=== PATIENT | female | born 1935 | race Caucasian/White ===

== ENCOUNTER 2017-04-10 13:59 | Inpatient (IN) | payer MEDICARE, BC ==
[~2017-04-10] VITALS: Ht 172.7 cm; Wt 92.5 kg
[~2017-04-10 13:59] MED LIST: ALDA50TA2 PO; ALLO100T PO; ASPI81TA85 PO; CINA30TA PO; FERR324T2 PO; FISH1000 PO; GLUC500C5 PO; HYDR-3910 PO; LANTINJ4 SC; LASI40TA PO; LEVO25TA5 PO; METO1TAB7 PO; NEUR300C PO; PARO10TA3 PO; PRIL20CA9 PO; PROC1INJ5 SC; SIMV40TA2 PO
[2017-04-10] MEDS ORDERED: BENA40TA7 PO ×2 (14:27→17:37)
[2017-04-10 15:34] LABS: BASO % 0.3 % (0.0-1.0); EOS # 0.2 K/mm3 (0.0-0.50); EOS % 2.2 % (0.0-3.0); LARGE UNSTAINED CELL # 0.1 K/mm3 (0.0-0.4); LARGE UNSTAINED CELL % 1.5 % (0.0-4.0); LYMPH % 27.3 % (24.0-44.0); MEAN CORPUSCULAR HEMOGLOBIN 33.4 pg (27.0-33.0); MEAN CORPUSCULAR HGB CONC 33.4 g/dl (32.0-36.5); MEAN CORPUSCULAR VOLUME 99.9 fl (80.0-96.0); MONO # 0.3 K/mm3 (0.0-0.8); MONO % 4.6 % (0.0-5.0); NEUTROPHILS # 4.5 K/mm3 (1.8-7.7); PLATELET COUNT, AUTOMATED 170 k/mm3 (150-450); RED CELL DISTRIBUTION WIDTH 14.4 % (11.5-14.5)
[2017-04-10 15:53] LABS: ANION GAP 8 MEQ/L (8-16); BLOOD UREA NITROGEN 82 MG/DL (7-18); CARBON DIOXIDE LEVEL 27 MEQ/L (21-32); CHLORIDE LEVEL 97 MEQ/L (98-107); CREATININE FOR GFR 2.88 MG/DL (0.55-1.02); GLOMERULAR FILTRATION RATE 16.8 (>39); GLUCOSE, FASTING 107 MG/DL (83-110); POTASSIUM SERUM 4.8 MEQ/L (3.5-5.1); SODIUM LEVEL 132 MEQ/L (136-145)
[2017-04-10] MEDS ORDERED: FURO40TA2 PO ×2 (17:37)
[2017-04-10] MEDS ORDERED: FERR325T16 PO (17:37)
[2017-04-10] MEDS ORDERED: PRESCAP6 PO (17:42)
[2017-04-10] MEDS ORDERED: REST0.05 OU (17:42)
[2017-04-10] MEDS ORDERED: GABA-283 PO (17:42)
--- NOTE | 2017-04-10 18:06 | REP ---
CT BRAIN WITHOUT CONTRAST: CT brain is performed without IV contrast. There is a small subarachnoid hemorrhage in the left occipital region. There is mild atrophy. There is no midline shift or mass effect. There are mild periventricular small vessel ischemic changes, which are probably old. No skull fracture is seen. There are vascular calcifications in the carotid siphons. IMPRESSION: Small left occipital subarachnoid hemorrhage. Dr. Leyva was informed of these findings by telephone in the emergency department at 5:11 pm 04/10/2017. Signed by Graeme Barcenas MD 04/13/2017 08:16 P
[2017-04-10] MEDS ORDERED: DEXTROSE 50% 50 ML SYRINGE IV PRN (18:15)
[2017-04-10] MEDS ORDERED: GLUCAGON FOR INJ 1 MG VIAL (J1610) SC PRN (18:15)
[2017-04-10] MEDS ORDERED: ONDANSETRON 4MG/2ML VIAL (J2405) IV PRN (18:15)
[2017-04-10] MEDS ORDERED: GLUCOSE 4 GM CHEW TABLET PO PRN (18:15)
--- NOTE | 2017-04-10 18:48 | REP ---
AP pelvis and AP and frog-leg views of the left hip: History: Trauma. Findings: AP view of the pelvis and AP and frog-leg views of the left hip show no evidence of pelvic, sacral or hip fracture. Femoral head is smooth and rounded and hip joint space is preserved. There are soft tissue ossific densities in the left gluteal soft tissues and in the central pelvis. There are degenerative disc changes in the lumbar spine. Impression: No fracture or other acute abnormality. Signed by Tad Kim MD 04/10/2017 06:40 P
--- NOTE | 2017-04-10 19:01 | HPEPDOC ---
General Date of Admission 04/10/17 Primary Care Physician: Britni Cantor Other Providers Knifer Up: Dr. Rosado Attending Physician: JUNIOR WILKERSON MD Chief Complaint The patient is a 81-year-old female admitted with a reason for visit of Syncope. History of Present Illness 81-year-old female with a past medical history of hypertension, diabetes mellitus, hypothyroidism, CKD stage IV and follows with Dr. Rosado, coronary artery disease, venous insufficiency, GERD, dyslipidemia, and gout presented to the ER after she has been having recurrent falls over the last few months. Of note, the patient was recently admitted at [facility] 2 days ago for an overnight observation admission. According to the patient and her family, the patient has sustained multiple falls over the last few months, and her most recent fall prior to her presentation to [place] resulted in her hitting her head. At that time, a CT scan revealed a small left occipital subarachnoid hemorrhage. This was apparently discussed with Dr. Thomas, and the patient was discharged home with a scheduled follow-up with Dr. Thomas today. However, at the office today the patient states that she had an episode where she felt weak in her legs, and nearly fell but was caught by family members. The patient is a rather poor historian, however her family states that she has had multiple falls over the last few months, and a lot of these falls are attributed to the patient not using her cane at home, which she has been advised to do. The patient lives at home by herself, but her family does live across the street. At baseline, she is functionally independent with her daily activities. At this time, the patient denies any complaints of headaches, lightheadedness, dizziness , vertiginous symptoms, facial numbness, slurring of speech, visual blurring, other neurological deficits, chest pain, palpitations, shortness of breath, abdominal pain, or any nausea/vomiting/diarrhea associated with the aforementioned events. In the ER, a CT scan of the head revealed a small left occipital subarachnoid hemorrhage. I did discuss these findings with Dr. Thomas, who has relayed that the patient's CAT scan is unchanged from 2 days ago, and that there is no neurosurgical intervention indicated at this time. At this time, the patient will be admitted under the service of Dr. Wilkerson for further evaluation and management. Home Medications Scheduled (Paroxetine) 10 Mg Tab, 10 MG PO QHS, (Reported) (Restasis) 0.05 % Emu, 1 DROP OU QHS, (Reported) (Preservision Areds 2) 1 Cap Cap, 1 CAP PO BID, (Reported) Allopurinol (Allopurinol) 100 Mg Tab, 100 MG PO BID, (Reported) Aspirin (Aspir-81) 81 Mg Tab, 81 MG PO Q2D, (Reported) PATIENT STATES [facility] TOLD HER NOT TO TAKE THIS UNTIL TO MD SAID IT WAS OKAY AGAIN DUE TO FALL Benazepril HCl (Benazepril HCl) 40 Mg Tab, 40 MG PO DAILY, (Reported) Cinacalcet Hydrochloride (Sensipar) 30 Mg Tab, 30 MG PO 3XW, (Reported) THU, THU, THU Epoetin Emery (Procrit) 10,000 Unit/Ml Inj, 10,000 UNIT SC QMONTH, (Reported) Ferrous Gluconate (Ferrous Gluconate) 324 Mg Tab, 324 MG PO DAILY, (Reported) Fish Oil (Fish Oil) 1,000 Mg Cap, 1 CAP PO BID, (Reported) Furosemide (Furosemide) 40 Mg Tab, 80 MG PO QAM, (Reported) Furosemide (Furosemide) 40 Mg Tab, 40 MG PO DAILY, (Reported) TAKES IN THE AFTERNOON Gabapentin (Gabapentin) 400 Mg Cap, 400 MG PO QHS, (Reported) Glucosamine Sulfate (Glucosamine) 500 Mg Cap, 500 MG PO TID, (Reported) Hydralazine HCl (Hydralazine HCl) 25 Mg Tab, 25 MG PO BID, (Reported) Insulin Glargine (Lantus Solostar) 100 Unit/Ml Inj, 18 UNITS SC QHS, (Reported) Levothyroxine Sodium (Synthroid) 25 Mcg Tab, 25 MCG PO DAILY, (Reported) Metoprolol Succinate (Metoprolol Succinate ER) 50 Mg Tab, 50 MG PO QHS, ( Reported) Omeprazole (Prilosec) 20 Mg Cap, 20 MG PO DAILY, (Reported) Simvastatin - High Dose (Simvastatin) 40 Mg Tab, 40 MG PO QHS, (Reported) Spironolactone (Aldactone) 50 Mg Tab, 50 MG PO DAILY, (Reported) Allergies Coded Allergies: Contrast Media (Verified Allergy, Unknown, 02/09/04) Metformin (Unverified Allergy, Unknown, KIDNEY PROBLEMS, 01/26/13) Rofecoxib (Unverified Allergy, Unknown, KIDNEY PROBLEMS, 01/26/13) Past Medical History Medical History As noted in HPI. Family History Significant Family History: No pertinent family hx Social History * Smoker: former Smoker Alcohol: occationally Drugs: denies Review of Symptoms Other systems 10 point review of systems negative unless otherwise specified in HPI. Physical Examination General Exam: Positive: Alert, Cooperative, No Acute Distress ENT Exam: Positive: Mucous membr. moist/pink, Other ENT (patient noted to have bruising on the posterior aspect of the neck and occipital area. No tenderness to palpation) Neck Exam: Negative: JVD Chest Exam: Positive: Clear to auscultation, Normal air movement, Diminished Heart Exam: Positive: Rate Normal, Normal S1, Normal S2 Telemetry: Positive: Sinus Abdomen Exam: Positive: Soft, Negative: Tenderness Extremity Exam: Positive: Swelling (3+ pitting edema lower extremity is bilaterally), Other (patient noted to have contusions along the dorsal surface of her right arm) Neuro Exam: Positive: Strength at 5/5 X4 ext Psych Exam: Positive: Oriented x 3 Vital Signs Vital Signs Date Time Temp Pulse Resp B/P (MAP) Pulse Ox O2 Delivery O2 Flow Rate FiO2 04/10/17 17:29 68 92 04/10/17 17:01 143/65 (91) 107/71 (83) 134/48 (76) 04/10/17 14:00 97.5 17 Room Air Laboratory Data Labs 24H Laboratory Tests 2 04/10/17 15:22: White Blood Count 7.0, Red Blood Count 3.07L, Hemoglobin 10.2L, Hematocrit 30.7L , Mean Corpuscular Volume 99.9H, Mean Corpuscular Hemoglobin 33.4H, Mean Corpuscular Hemoglobin Concent 33.4, Red Cell Distribution Width 14.4, Platelet Count 170, Neutrophils (%) (Auto) 64.0, Lymphocytes (%) (Auto) 27.3, Monocytes ( %) (Auto) 4.6, Eosinophils (%) (Auto) 2.2, Basophils (%) (Auto) 0.3, Neutrophils # (Auto) 4.5, Lymphocytes # (Auto) 2.0, Monocytes # (Auto) 0.3, Eosinophils # (Auto) 0.2, Basophils # (Auto) 0.0, Large Unclassified Cells % 1.5 , Large Unclassified Cells # 0.1, Anion Gap 8, Glomerular Filtration Rate 16.8L , Blood Urea Nitrogen 82H, Creatinine 2.88H, Sodium Level 132L, Potassium Level 4.8, Chloride Level 97L, Carbon Dioxide Level 27, Calcium Level 9.0, Total Creatine Kinase 261H, Creatine Kinase MB 3.1, Creatine Kinase MB Relative Index 1.18, Troponin I < 0.02, Thyroid Stimulating Hormone (TSH) 3.940H CBC/BMP Laboratory Tests 04/10/17 15:22 Red Blood Count 3.07 L, Mean Corpuscular Volume 99.9 H, Mean Corpuscular Hemoglobin 33.4 H, Mean Corpuscular Hemoglobin Concent 33.4, Red Cell Distribution Width 14.4, Neutrophils (%) (Auto) 64.0, Lymphocytes (%) (Auto) 27.3, Monocytes (%) (Auto) 4.6, Eosinophils (%) (Auto) 2.2, Basophils (%) (Auto ) 0.3, Neutrophils # (Auto) 4.5, Lymphocytes # (Auto) 2.0, Monocytes # (Auto) 0.3, Eosinophils # (Auto) 0.2, Basophils # (Auto) 0.0, Calcium Level 9.0, Total Creatine Kinase 261 H Plan / VTE VTE Prophylaxis Ordered?: Yes Plan Plan Recurrent Falls, Near Syncopal Episodes We will admit to PCU EKG with no acute ST-T changes Initial troponin negative, will serially trend 2D ECHO ordered U/S Carotids ordered Orthostatic Vitals ordered Neurochecks Physical Therapy We will continue to monitor on Telemetry Small Left Occipital Subarachnoid Hemorrhage 2/2 Trauma Patient with no acute neurological deficits CT Scan of the Head notable for a small left occipital subarachnoid hemorrhage. I did discuss these findings with Dr. Thomas, who has relayed that the patient' s CAT scan is unchanged from 2 days ago from [place]. As per him, there is no neurosurgical intervention indicated at this time, and that the patient's recurrent falls are not attributable to the subarachnoid hemorrhage but rather a product of trauma 2/2 falls from possible underlying orthostatic hypotension, vascular insufficiency. CKD stage IV Unknown baseline Serum Cr Order to obtain records from PCP placed However, it does appear that the patient is likely at her baseline--she does already have an AV-Fistula in place for initiation of dialysis when indicated in the future No indications for dialysis at this time Follows with Dr. Rosado as an outpatient Hx of Hypertension, stable Will hold B/P Meds for now as the patient's blood pressure was on the softer side in the ED We will also be checking orthostatics--if these are negative and the patient's blood pressure has become elevated, we will restart meds Diabetes mellitus Cont Levemir qhs, ISS Hypothyroidism Cont Levothyroxine Hx of Coronary artery disease Cont Statin--ASA on hold (2/2 SAH), and Metoprolol on hold (2/2 borderline hypotension) Venous insufficiency The patient does have 2-3+ pitting edema in the lower extremities--however this is the patient's baseline according to her and family We will with hold diuretics at this time given her relatively low B/P Patient's respiratory status is comfortable, no crackles on exam-->2D ECHO ordered to assess whether there is an underlying component of CHF GERD Cont PPI Dyslipidemia Cont Statin Gout Cont allopurinol DVT Prophylaxis SCDs/TEDs (NO AC 2/2 SAH) The patient will be admitted under the service of Dr. Wilkerson, who will begin to follow the patient on 04/11/17 at 7 AM. JULIO CÉSAR CHASE MD Apr 10, 2017 19:01
--- NOTE | 2017-04-10 19:40 | ECGEPIP ---
Stationary ECG Study [facility] - ED Test Date: 2017-04-10 Pat Name: MARCOS RIVAS Department: Room: - Gender: F Corporate Services Manager: rn : 1935 Requested By: Oksana Hennessy Order Number: [id number] Reading MD: Helio Nicholas Measurements Intervals Bixby Rate: 62 P: -11 LA: 173 QRS: -22 QRSD: 96 T: 39 QT: 414 QTc: 421 Interpretive Statements SINUS RHYTHM BORDERLINE LEFT AXIS DEVIATION LOW QRS VOLTAGE IN PRECORDIAL LEADS NO PRIORS Electronically Signed On 04-10-2017 19:40:39 EDT by Helio Nicholas
[2017-04-10 20:04] LABS: INR 1.04
[2017-04-10 20:28] VITALS: BP 141/63
[2017-04-10] MEDS: HumaLOG INSULIN (NovoLOG) PER UNIT SC SCH (21:00)
--- NOTE | 2017-04-10 21:02 | REP ---
Duplex carotid sonography: History: Syncopal episodes. Findings: Vertebral artery flow could not be observed on either side. Right carotid: Exam quality was inhibited by patient body habitus. There is minimal soft plaquing in the distal CCA. Mild mixed plaquing is seen in the proximal ICA and bulb on two-dimensional scanning. Color flow and spectral Doppler interrogation are unremarkable on the right side. Velocity chart: CCA PSV 109 cm/s ICA PSV 101 cm/s ICA EDV 23 cm/s ECA PSV 102 cm/s Right ICA/CCA ratio normal 0.9. IMPRESSION: 16-49% category narrowing in the right ICA by Doppler velocity criteria. Left carotid: There is minimal soft plaquing in the distal CCA. Mild mixed plaquing is seen in the bulb on the left side on two-dimensional scanning. Color flow and spectral Doppler interrogation are unremarkable in the left internal carotid. Velocity chart: CCA PSV 87 cm/s ICA PSV 115 cm/s ICA EDV 10 cm/s ECA PSV 149 cm/s Left ICA/CCA ratio normal 1.3. Impression: 16-49% category narrowing in the left ICA by Doppler velocity criteria. Signed by Tad Kim MD 04/11/2017 07:43 A
[2017-04-10] MEDS: GABAPENTIN 400 MG CAP PO SCH (21:03)
[2017-04-10] MEDS: ALLOPURINOL 100 MG TAB PO SCH (21:03)
[2017-04-10] MEDS: PARoxetine 10MG TABLET PO SCH (21:03)
[2017-04-10] MEDS: SIMVASTATIN 40 MG TAB PO SCH (21:03)
[2017-04-10] MEDS: OMEGA-3 1050MG CAPSULE PO SCH (21:03)
[2017-04-10] MEDS: ACETAMINOPHEN TAB 650MG DOSE (2X325MG) PO PRN (21:03)
[2017-04-10] MEDS: LEVEMIR (INSULIN DETEMIR) 1 UNITS/0.01ML SC SCH (21:56)
[2017-04-10 23:59] VITALS: BP_SYST 110; BP_SYST 90; BP_SYST 96; BP_DIAS 50; BP_DIAS 53
[2017-04-11] VITALS (10 sets, daily range): BP systolic 80–128; BP diastolic 37–62
[2017-04-11] MEDS ORDERED: NS 1,000 ML IV ONE (04:00)
[2017-04-11 04:49] LABS: MEAN CORPUSCULAR HEMOGLOBIN 33.6 pg (27.0-33.0); MEAN CORPUSCULAR HGB CONC 33.5 g/dl (32.0-36.5); MEAN CORPUSCULAR VOLUME 100.5 fl (80.0-96.0); RED CELL DISTRIBUTION WIDTH 14.5 % (11.5-14.5); WHITE BLOOD COUNT 5.3 K/mm3 (4.0-10.0)
[2017-04-11 05:09] LABS: CALCIUM LEVEL 8.4 MG/DL (8.8-10.2); CREATININE FOR GFR 2.98 MG/DL (0.55-1.02); GLOMERULAR FILTRATION RATE 16.1 (>39); MAGNESIUM LEVEL 2.4 MG/DL (1.8-2.4); POTASSIUM SERUM 4.6 MEQ/L (3.5-5.1)
[2017-04-11] MEDS: LEVOTHYROXINE 25MCG TABLET (0.025MG) PO SCH (05:30)
[2017-04-11] MEDS: NS 1,000 ML IV SCH ×2 (05:31→17:20)
[2017-04-11] MEDS: ALLOPURINOL 100 MG TAB PO SCH ×2 (09:23→20:19)
[2017-04-11] MEDS: HumaLOG INSULIN (NovoLOG) PER UNIT SC SCH ×4 (09:24→20:19)
[2017-04-11] MEDS: FERROUS GLUCONATE 324 MG TAB PO SCH (09:24)
[2017-04-11] MEDS: OMEPRAZOLE 20 MG CAP PO SCH (09:24)
[2017-04-11] MEDS: OMEGA-3 1050MG CAPSULE PO SCH ×2 (09:24→20:20)
--- NOTE | 2017-04-11 10:19 | IPNPDOC ---
Subjective Date Seen The patient was seen on 04/11/17. Subjective Chief Complaint/HPI The patient is a 81-year-old female admitted with a reason for visit of Recurrent Falls. Events since last encounter patient complains of left shoulder pain , low back pain , she showed me her bruises from her fall earlier in the week on her neck , both shoulders, across low back , left breast and right and left arm. denied any fever or chills, denied any chest pain or sob , says she has been having loose bowel movements about 2 to 3 times a day for the past week. denied any abdominal pain , nausea or vomiting. Objective Physical Examination General Exam: Positive: Alert, Cooperative, No Acute Distress Eye Exam: Positive: PERRLA, Conjunctiva & lids normal, EOMI, Negative: Sclera icteric ENT Exam: Positive: Mucous membr. moist/pink, Other ENT (patient noted to have bruising on the posterior aspect of the neck and occipital area. No tenderness to palpation) Neck Exam: Negative: JVD Chest Exam: Positive: Clear to auscultation, Normal air movement, Diminished, Other (bruising on left breat.) Heart Exam: Positive: Rate Normal, Normal S1, Normal S2 Telemetry: Positive: No significant arrhythmia, Sinus Abdomen Exam: Positive: Normal bowel sounds, Soft, Negative: Tenderness Extremity Exam: Positive: Edema, Swelling (3+ pitting edema lower extremity is bilaterally), Other (patient noted to have contusions along the dorsal surface of her right arm) Skin Exam: Positive: Other skin issue (bruises on neck ,both shoulders, across lower back , left breast, both arms) Neuro Exam: Positive: Strength at 5/5 X4 ext Psych Exam: Positive: Oriented x 3 Assessment /Plan Problems (1) Hypotension Status: Acute Problem Text: No signs of infection , no signs of any acute cardiac events. Has been having diarrhea for a week and on multiple antihypertensive medications. could be related to mild dehydration and medications. severely orthostatic positive. will continue with IVF. will get echo to rule out pericardial effusion. (2) Recurrent falls Status: Acute Problem Text: Had 3 falls inthe last week , no LOC will Monitor on tele for any arrhythmia. Hypotensive possibly this is causing her falls. (3) Near syncope Status: Acute Problem Text: due to orthostatic hypotension (4) Subarachnoid hemorrhage Status: Acute Problem Text: seen by Dr Zhou no neurosurgical intervention needed. (5) CKD (chronic kidney disease), stage IV Status: Chronic (6) Diabetes Status: Chronic (7) Hypertension Status: Chronic Problem Text: now hypotensive so will hold all antihypertensive medications. (8) Hyperlipidemia Status: Chronic (9) Venous insufficiency Status: Chronic (10) Gout Status: Chronic (11) JEREMIE on CPAP Status: Chronic (12) CAD (coronary artery disease) Status: Chronic (13) GERD (gastroesophageal reflux disease) Status: Chronic (14) Hypothyroidism Status: Chronic Plan/VTE VTE Prophylaxis Ordered?: Yes VS, I&O, 24H, Fishbone Vital Signs/I&O Vital Signs Date Time Temp Pulse Resp B/P (MAP) Pulse Ox O2 Delivery O2 Flow Rate FiO2 04/11/17 09:28 Room Air 04/11/17 07:10 67 86/43 (57) 67 90/49 (63) 04/11/17 07:10 98.1 20 100 I&O- Last 24 Hours up to 6 AM 04/11/17 06:00 Intake Total 1695 ml Output Total 226 ml Balance 1469 ml Laboratory Data 24H LABS Laboratory Tests 2 04/10/17 15:22: White Blood Count 7.0, Red Blood Count 3.07L, Hemoglobin 10.2L, Hematocrit 30.7L , Mean Corpuscular Volume 99.9H, Mean Corpuscular Hemoglobin 33.4H, Mean Corpuscular Hemoglobin Concent 33.4, Red Cell Distribution Width 14.4, Platelet Count 170, Neutrophils (%) (Auto) 64.0, Lymphocytes (%) (Auto) 27.3, Monocytes ( %) (Auto) 4.6, Eosinophils (%) (Auto) 2.2, Basophils (%) (Auto) 0.3, Neutrophils # (Auto) 4.5, Lymphocytes # (Auto) 2.0, Monocytes # (Auto) 0.3, Eosinophils # (Auto) 0.2, Basophils # (Auto) 0.0, Large Unclassified Cells % 1.5 , Large Unclassified Cells # 0.1, Anion Gap 8, Glomerular Filtration Rate 16.8L , Blood Urea Nitrogen 82H, Creatinine 2.88H, Sodium Level 132L, Potassium Level 4.8, Chloride Level 97L, Carbon Dioxide Level 27, Calcium Level 9.0, Total Creatine Kinase 261H, Creatine Kinase MB 3.1, Creatine Kinase MB Relative Index 1.18, Troponin I < 0.02, Thyroid Stimulating Hormone (TSH) 3.940H 04/10/17 19:37: Total Creatine Kinase 265H, Creatine Kinase MB 3.1, Creatine Kinase MB Relative Index 1.16, Troponin I < 0.02, Prothrombin Time 13.7, Prothromb Time International Ratio 1.04, Activated Partial Thromboplast Time 29.7 04/10/17 20:35: Bedside Glucose (Misc Panel) 95 04/10/17 21:50: Bedside Glucose (Misc Panel) 155H 04/11/17 03:58: Anion Gap 7L, Glomerular Filtration Rate 16.1L, Blood Urea Nitrogen 81H, Creatinine 2.98H, Sodium Level 133L, Potassium Level 4.6, Chloride Level 99, Carbon Dioxide Level 27, Calcium Level 8.4L, Magnesium Level 2.4 04/11/17 04:12: Lactic Acid Level 0.9 04/11/17 09:44: CBC/BMP Laboratory Tests 04/10/17 15:22 Red Blood Count 3.07 L, Mean Corpuscular Volume 99.9 H, Mean Corpuscular Hemoglobin 33.4 H, Mean Corpuscular Hemoglobin Concent 33.4, Red Cell Distribution Width 14.4, Neutrophils (%) (Auto) 64.0, Lymphocytes (%) (Auto) 27.3, Monocytes (%) (Auto) 4.6, Eosinophils (%) (Auto) 2.2, Basophils (%) (Auto ) 0.3, Neutrophils # (Auto) 4.5, Lymphocytes # (Auto) 2.0, Monocytes # (Auto) 0.3, Eosinophils # (Auto) 0.2, Basophils # (Auto) 0.0, Calcium Level 9.0, Total Creatine Kinase 261 H 04/11/17 03:58 Red Blood Count 2.73 L, Mean Corpuscular Volume 100.5 H, Mean Corpuscular Hemoglobin 33.6 H, Mean Corpuscular Hemoglobin Concent 33.5, Red Cell Distribution Width 14.5, Calcium Level 8.4 L JUNIOR GIL MD Apr 11, 2017 10:19
[2017-04-11] MEDS: ACETAMINOPHEN TAB 650MG DOSE (2X325MG) PO PRN (18:18)
[2017-04-11] MEDS: LEVEMIR (INSULIN DETEMIR) 1 UNITS/0.01ML SC SCH (20:19)
[2017-04-11] MEDS: PARoxetine 10MG TABLET PO SCH (20:19)
[2017-04-11] MEDS: GABAPENTIN 400 MG CAP PO SCH (20:20)
[2017-04-11] MEDS: SIMVASTATIN 40 MG TAB PO SCH (20:20)
[2017-04-12] VITALS (8 sets, daily range): BP systolic 98–150; BP diastolic 48–62
[2017-04-12 05:14] LABS: MEAN CORPUSCULAR HEMOGLOBIN 33.9 pg (27.0-33.0); MEAN CORPUSCULAR HGB CONC 32.7 g/dl (32.0-36.5); MEAN CORPUSCULAR VOLUME 103.6 fl (80.0-96.0); RED CELL DISTRIBUTION WIDTH 14.2 % (11.5-14.5); WHITE BLOOD COUNT 4.6 K/mm3 (4.0-10.0)
[2017-04-12] MEDS: LEVOTHYROXINE 25MCG TABLET (0.025MG) PO SCH (05:23)
[2017-04-12 05:26] LABS: CREATININE FOR GFR 2.31 MG/DL (0.55-1.02); GLOMERULAR FILTRATION RATE 21.7 (>39); POTASSIUM SERUM 4.6 MEQ/L (3.5-5.1)
[2017-04-12] MEDS: NS 1,000 ML IV SCH (06:55)
--- NOTE | 2017-04-12 07:16 | ECHO ---
DATE OF PROCEDURE: 04/11/2017 AGE: 81 GENDER: Female REFERRING PHYSICIAN: Dr. Flannery. HEIGHT: 67 inches. WEIGHT: 196 pounds. BODY SURFACE AREA: 2.0 sq m. INPATIENT: PCU Room 3211. INDICATION: Syncope. MEASUREMENTS: 2D MEASUREMENTS: RV - 3.4 cm LV- 4.9 cm Septum - 0.9 cm Posterior wall - 0.9 cm Aortic root - 2.7 cm LA - 4.0 cm LVEF - 65% DOPPLER MEASUREMENTS: AV - 2.3 m/s LVOT - 1.5 m/s Mean AV gradient - 12 mmHg MV-E: 180 A: 190 EA ratio 0.9 Early mitral deacceleration time 380 ms Pressure half time - 129 Mean MV diastolic gradient - 4 mmHg PV - 1.2 m/s Pulmonary artery acceleration time - 87 ms PASP - 40 mmHg IVC - 1.8 2-D, M-mode, pulsed, continuous wave and color flow Doppler studies were performed. CONCLUSIONS: Normal sinus rhythm with first-degree AV block but no other arrhythmia was documented. Normal left ventricular size and wall thickness with hyperkinetic wall motion. Mildly dilated left atrium. Normal right heart chamber sizes and motion with Doppler evidence of at least mild to moderate pulmonary hypertension. Normal IVC size and collapse against an elevated central venous pressure. Moderate aortic valvular sclerosis without stenosis (elevated peak transvalvular systolic velocity related to hyperdynamic LV flow; dimensionless index was normal at 0.7). Moderately severe mitral annular calcification with marginal LV inflow tract obstruction. No insufficiency. No apparent intracardiac mass or pericardial effusion. MTDD
[2017-04-12] MEDS: FERROUS GLUCONATE 324 MG TAB PO SCH (08:42)
[2017-04-12] MEDS: OMEPRAZOLE 20 MG CAP PO SCH (08:42)
[2017-04-12] MEDS: ALLOPURINOL 100 MG TAB PO SCH ×2 (08:42→22:23)
[2017-04-12] MEDS: OMEGA-3 1050MG CAPSULE PO SCH ×2 (08:42→22:22)
[2017-04-12] MEDS: HumaLOG INSULIN (NovoLOG) PER UNIT SC SCH ×4 (08:43→21:00)
[2017-04-12] MEDS: MUPIROCIN 2% OINT 22 GM TUBE TOP SCH (09:00)
--- NOTE | 2017-04-12 10:23 | IPNPDOC ---
Subjective Date Seen The patient was seen on 04/12/17. Subjective Chief Complaint/HPI The patient is a 81-year-old female admitted with a reason for visit of Recurrent Falls. Events since last encounter complaining of leg swelling this morning otherwise no other complaints, generalized pain after the falls are getting better no dizziness of light headedness. no diarrhea, no chest pain , or SOb , no nausea or vomiting , no fever or chills, Objective Physical Examination General Exam: Positive: Alert, Cooperative, No Acute Distress Eye Exam: Positive: PERRLA, Conjunctiva & lids normal, EOMI, Negative: Sclera icteric ENT Exam: Positive: Mucous membr. moist/pink, Other ENT (patient noted to have bruising on the posterior aspect of the neck and occipital area. No tenderness to palpation) Neck Exam: Negative: JVD Chest Exam: Positive: Clear to auscultation, Normal air movement, Diminished, Other (bruising on left breat.) Heart Exam: Positive: Rate Normal, Normal S1, Normal S2 Telemetry: Positive: No significant arrhythmia, Sinus Abdomen Exam: Positive: Normal bowel sounds, Soft, Negative: Tenderness Extremity Exam: Positive: Edema, Swelling (3+ pitting edema lower extremity is bilaterally), Other (patient noted to have contusions along the dorsal surface of her right arm) Skin Exam: Positive: Other skin issue (bruises on neck ,both shoulders, across lower back , left breast, both arms) Neuro Exam: Positive: Strength at 5/5 X4 ext Psych Exam: Positive: Oriented x 3 Assessment /Plan Problems (1) Hypotension Status: Acute Response to Treatment: Improving Problem Text: No signs of infection , no signs of any acute cardiac events. Has been having diarrhea for a week and on multiple antihypertensive medications. could be related to mild dehydration and medications. orthostasis improving. will continue with IVF. will get echo to rule out pericardial effusion. (2) Recurrent falls Status: Acute Problem Text: Had 3 falls inthe last week , no LOC will Monitor on tele for any arrhythmia. Hypotensive possibly this is causing her falls. (3) Near syncope Status: Acute Problem Text: due to hypotension no abnormality in telemetry (4) Subarachnoid hemorrhage Status: Acute Problem Text: seen by Dr Zhou no neurosurgical intervention needed. (5) CKD (chronic kidney disease), stage IV Status: Chronic (6) Diabetes Status: Chronic (7) Hypertension Status: Chronic Problem Text: now hypotensive so will hold all antihypertensive medications. (8) Hyperlipidemia Status: Chronic (9) Venous insufficiency Status: Chronic (10) Gout Status: Chronic (11) JEREMIE on CPAP Status: Chronic (12) CAD (coronary artery disease) Status: Chronic (13) GERD (gastroesophageal reflux disease) Status: Chronic (14) Hypothyroidism Status: Chronic Plan/VTE VTE Prophylaxis Ordered?: Yes VS, I&O, 24H, Fishbone Vital Signs/I&O Vital Signs Date Time Temp Pulse Resp B/P (MAP) Pulse Ox O2 Delivery O2 Flow Rate FiO2 04/12/17 07:30 100/50 (67) 120/50 (73) 110/58 (75) 04/12/17 03:47 97.2 51 18 94 Room Air I&O- Last 24 Hours up to 6 AM 04/12/17 06:00 Intake Total 3300 ml Output Total 1625 ml Balance 1675 ml Laboratory Data 24H LABS Laboratory Tests 2 04/11/17 13:10: Bedside Glucose (Misc Panel) 92 04/11/17 16:19: Bedside Glucose (Misc Panel) 116H 04/11/17 20:08: Bedside Glucose (Misc Panel) 170H 04/12/17 04:44: Anion Gap 5L, Glomerular Filtration Rate 21.7L, Blood Urea Nitrogen 66H, Creatinine 2.31H, Sodium Level 142#, Potassium Level 4.6, Chloride Level 112H, Carbon Dioxide Level 25, Calcium Level 8.0L CBC/BMP Laboratory Tests 04/12/17 04:44 Red Blood Count 2.58 L, Mean Corpuscular Volume 103.6 H, Mean Corpuscular Hemoglobin 33.9 H, Mean Corpuscular Hemoglobin Concent 32.7, Red Cell Distribution Width 14.2, Calcium Level 8.0 L JUNIOR GIL MD Apr 12, 2017 10:23
[2017-04-12] MEDS: LEVEMIR (INSULIN DETEMIR) 1 UNITS/0.01ML SC SCH (21:00)
[2017-04-12] MEDS: ACETAMINOPHEN TAB 650MG DOSE (2X325MG) PO PRN (22:22)
[2017-04-12] MEDS: SIMVASTATIN 40 MG TAB PO SCH (22:22)
[2017-04-12] MEDS: GABAPENTIN 400 MG CAP PO SCH (22:23)
[2017-04-12] MEDS: PARoxetine 10MG TABLET PO SCH (22:23)
[2017-04-13] VITALS: BP_SYST 128; BP_SYST 136; BP_SYST 146; BP_DIAS 62; BP_DIAS 68; BP_DIAS 72
[2017-04-13] MEDS: LEVOTHYROXINE 25MCG TABLET (0.025MG) PO SCH (05:38)
[2017-04-13 06:00] VITALS: BP_SYST 120; BP_SYST 132; BP_SYST 136; BP_DIAS 60; BP_DIAS 62
[2017-04-13 06:39] LABS: MEAN CORPUSCULAR HEMOGLOBIN 33.8 pg (27.0-33.0); MEAN CORPUSCULAR HGB CONC 32.8 g/dl (32.0-36.5); RED CELL DISTRIBUTION WIDTH 14.7 % (11.5-14.5); WHITE BLOOD COUNT 4.6 K/mm3 (4.0-10.0)
[2017-04-13 06:50] LABS: CALCIUM LEVEL 8.1 MG/DL (8.8-10.2); CREATININE FOR GFR 1.78 MG/DL (0.55-1.02); GLOMERULAR FILTRATION RATE 29.3 (>39); POTASSIUM SERUM 4.7 MEQ/L (3.5-5.1)
[2017-04-13] MEDS: HumaLOG INSULIN (NovoLOG) PER UNIT SC SCH ×2 (07:30→12:00)
[2017-04-13] MEDS ORDERED: FUROSEMIDE 40 MG TAB PO SCH (09:00)
[2017-04-13] MEDS: MUPIROCIN 2% OINT 22 GM TUBE TOP SCH (09:46)
[2017-04-13] MEDS: OMEGA-3 1050MG CAPSULE PO SCH (09:47)
[2017-04-13] MEDS: ALLOPURINOL 100 MG TAB PO SCH (09:47)
[2017-04-13] MEDS: FERROUS GLUCONATE 324 MG TAB PO SCH (09:47)
[2017-04-13] MEDS: OMEPRAZOLE 20 MG CAP PO SCH (09:47)
--- NOTE | 2017-04-20 12:13 | DSES ---
DATE OF ADMISSION: 04/10/2017 DATE OF DISCHARGE: 04/13/2017 PRIMARY CARE PROVIDER: Britni Cantor. DISCHARGE DIAGNOSES: Hypotension due to antihypertensive medications. Recurrent falls due to orthostatic hypotension. Presyncope due to hypotension. Subarachnoid hemorrhage, stable. Chronic kidney disease (CKD), stage IV. Diabetes. Hypertension. Hyperlipidemia. Venous insufficiency. Gout. Obstructive sleep apnea (JEREMIE) on CPAP. Coronary artery disease. Gastroesophageal reflux disease (GERD). Hypothyroidism. DISCHARGE MEDICATIONS: - allopurinol 100 mg by mouth twice daily - Sensipar 30 mg by mouth three times per week - Procrit 10,000 units subcutaneously once a month - ferrous gluconate 324 mg by mouth daily - fish oil one capsule twice daily - furosemide 80 mg in the morning - gabapentin 400 mg by mouth at bedtime - glucosamine 500 mg by mouth three times daily - Lantus insulin 18 units at bedtime - Synthroid 25 mcg by mouth daily - omeprazole 20 mg by mouth daily - paroxetine 10 mg at bedtime - PreserVision Areds one capsule by mouth twice daily - Restasis eye drops one drop both eyes at bedtime - Simvastatin 40 mg at bedtime - spironolactone 50 mg by mouth daily HOSPITAL COURSE: This is a 81-year-old female who was sent from the office of neurosurgery for an episode of syncope and fall. Of note, patient was in the [facility] on 04/08/2017 after fall in her house where she rolled down a few stairs and fell on the pavement hitting her head sustaining a small left occipital subarachnoid hemorrhage. She went for followup of this hemorrhage with Dr. Thomas in his office and again had syncopal episode and collapse and was sent to the emergency room. In the ED, patient was found to be hypotensive accompanied by lightheadedness, dizziness and extreme weakness. Patient was admitted to the hospital for hypotension, syncope, recurrent falls. Patient had workup done for infectious etiology causing hypotension, cardiac etiology causing hypotension. Patient was monitored in telemetry but did not show any arrhythmia. Patient had echocardiogram done which did not show any pericardial effusion. Echo showed an ejection fraction of 65%. EKG showed sinus rhythm with first degree AV block. There was no aortic stenosis. There is no mitral regurgitation. No other valvular heart disease. Patient's antihypertensive medications and diuretics were held during hospitalization with gradual improvement in blood pressure. However, patient also started developing pedal edema so with normalization of blood pressure, her diuretics were started on a lower dose but her other antihypertensive medications including faustina inhibitors, beta renaldo and hydralazine were continued to be held. Patient's aspirin was also held. Patient had a repeat CT scan here in our hospital which showed stable left occipital subarachnoid hemorrhage which was discussed with Dr. Thomas and as per him did not need any intervention. Then had a carotid ultrasound done which did not show any significant narrowing on either side, so all the patient's symptoms were felt to be related to hypotension related to medications and the background of dehydration due to diarrhea. Patient did have about a week of diarrhea about three times per day. Here in the hospital, she did not have any further episodes of diarrhea. On the day of discharge, patient's vitals were stable, did not have any complaints and was functionally at baseline. PHYSICAL EXAMINATION: Vital signs: Temperature 98.2, pulse 77, blood pressure 120/60. There were no orthostatic changes. Pulse oximetry 97% on room air. General: Patient awake, alert, oriented times three sitting up in bed in no acute distress. HEENT: Normocephalic, atraumatic. Moist mucous membranes. Anicteric eyes. Chest: Clear to auscultation. Cardiovascular: S1, S2, regular. No rub, murmur or gallop. Abdomen: Soft, obese, nontender. Bowel sounds present. Extremities: 3+ edema. LABORATORY DATA: WBC 4.6, hemoglobin 8.3, platelets 140. Sodium 139, potassium 4.7, chloride 110, bicarbonate 26, BUN 51, creatinine 1.78. Lactic acid 0.9. Calcium 8.1. Blood glucose 139. Cardiac enzymes were negative. TSH 3.9. Coagulation studies were normal. DISPOSITION: Patient is discharged home in stable condition. DISCHARGE INSTRUCTIONS: Patient to followup with primary care provider in 3 days for assessment of her blood pressure and adjustment of blood pressure medications. Diet as tolerated. Activity as tolerated.
== END 2017-04-13 14:26 | disposition home health service (06) | DRG 315 ==
LOC: M ED 15:43 → M ED INP 18:14 → M PCU 20:11 → M MSPAV 04-12 18:50 → M PCU 04-12 19:19 → M MSPAV 04-12 20:45
PROVIDERS: ADMIT Internal Medicine; ATTEND Internal Medicine Nephrology
DX: I95.9 Hypotension, unspecified (principal); N18.4 Chronic kidney disease, stage 4 (severe); R29.6 Repeated falls; E11.9 Type 2 diabetes mellitus without complications; I12.9 Hypertensive chronic kidney disease with stage 1 through stage 4 chronic kidney disease, or unspecified chronic kidney disease; I87.2 Venous insufficiency (chronic) (peripheral); E78.5 Hyperlipidemia, unspecified; M10.9 Gout, unspecified; G47.33 Obstructive sleep apnea (adult) (pediatric); I25.10 Atherosclerotic heart disease of native coronary artery without angina pectoris; K21.9 Gastro-esophageal reflux disease without esophagitis; E03.9 Hypothyroidism, unspecified; Z79.4 Long term (current) use of insulin; Z79.899 Other long term (current) drug therapy; Z79.82 Long term (current) use of aspirin; Z88.8 Allergy status to other drugs, medicaments and biological substances; Z91.041 Radiographic dye allergy status; Z87.891 Personal history of nicotine dependence; Z99.89 Dependence on other enabling machines and devices

== ENCOUNTER → 2017-04-20 | Outpatient (CLI) | payer MEDICARE, BC ==
[~2017-04-20] MED LIST changes: +BENA40TA2 PO; +FERR325T16 PO; +FURO40TA2 PO; +GABA-283 PO; -HYDR-3910 PO; +HYDR-4266 PO; +METO-207 PO; -METO1TAB7 PO; -PARO10TA3 PO; +PARO10TA84 PO; +PRESCAP6 PO; +REST0.05 OU
--- NOTE | 2017-04-20 14:34 | REP ---
REASON: Followup intracranial subarachnoid hemorrhage in the left occipital region. COMPARISON: 04/10/2017. The small left sided subarachnoid hemorrhage seen on the 04/10/2017 examination has completely resolved. The examination is otherwise unchanged from the prior exam. There is no evidence of an acute intracranial hemorrhage or non-hemorrhagic event. The imaged paranasal sinuses and mastoid air cells are again seen to be clear. IMPRESSION: Resolved subarachnoid hemorrhage as described above. Signed by Javier Ashley DO 04/20/2017 03:13 P
--- NOTE | 2017-04-20 14:45 | REP ---
Cervical spine seven views: There are no comparisons. Vertebral body heights and alignment are normal C1-C7. Kilos obscured by the shoulders. There is advanced degenerative disc disease at C 05/06. There is no listhesis on flexion or extension. The facets are normally aligned. The prevertebral soft tissues are unremarkable except for thyroid, cricoid cartilage calcification. The odontoid view is unremarkable. No bony foraminal encroachment is identified, however, the right to 03/04 in a suboptimally demonstrated. Impression: Degenerative disc disease at C 05/06. Facet osteoarthritis. T1 is obscured by the shoulders. On the lateral views. Recommend the patient return for a lateral views demonstrating T1. The right C2-3 foramen is suboptimally demonstrated. This should also be repeated on the follow-up views. Signed by Graeme Beard MD 04/20/2017 02:36 P
--- NOTE | 2017-04-20 14:47 | REP ---
Clinical: Spondylosis. Technique: AP, lateral, bilateral oblique, flexion/extension and coned-down views of the lumbosacral spine. Findings: Chronic levoconvex scoliosis and advanced multilevel degenerative disc osteophyte complexes are appreciated. Findings include osteophytosis, endplate sclerosis/irregularity and disc space narrowing along with hypertrophic facet changes. No obvious acute fracture / compression injury or subluxation. Impression: Advanced multilevel degenerative disc osteophyte complexes and chronic levoconvex scoliosis. Signed by Varun Wihpple MD 04/20/2017 02:39 P
== END ==
LOC: M RAD 13:38
PROVIDERS: ATTEND Neurological Surgery
DX: M47.896 Other spondylosis, lumbar region (principal); I60.9 Nontraumatic subarachnoid hemorrhage, unspecified

== ENCOUNTER → 2017-05-05 | Outpatient (REF) | payer MEDICARE, BC ==
[~2017-05-05] MED LIST changes: -BENA40TA2 PO; +BENA40TA7 PO; +HYDR-3910 PO; -HYDR-4266 PO; -METO-207 PO; +METO1TAB7 PO; +PARO10TA3 PO; -PARO10TA84 PO
[2017-05-05 13:37] LABS: BASO % 0.4 % (0.0-1.0); EOS # 0.3 K/mm3 (0.0-0.50); EOS % 3.8 % (0.0-3.0); LARGE UNSTAINED CELL # 0.1 K/mm3 (0.0-0.4); LARGE UNSTAINED CELL % 1.2 % (0.0-4.0); LYMPH # 1.8 K/mm3 (1.5-4.5); LYMPH % 24.1 % (24.0-44.0); MEAN CORPUSCULAR HEMOGLOBIN 32.7 pg (27.0-33.0); MEAN CORPUSCULAR VOLUME 102.1 fl (80.0-96.0); MONO # 0.3 K/mm3 (0.0-0.8); NEUTROPHILS # 4.7 K/mm3 (1.8-7.7); NEUTROPHILS % 66.5 % (36.0-66.0); PLATELET COUNT, AUTOMATED 234 k/mm3 (150-450); RED CELL DISTRIBUTION WIDTH 14.7 % (11.5-14.5)
[2017-05-05 13:55] LABS: ALBUMIN 3.5 GM/DL (3.2-5.2); ALBUMIN/GLOBULIN RATIO 1.03 (1.00-1.93); ALKALINE PHOSPHATASE 107 U/L (45-117); ALT/SGPT 15 U/L (12-78); ANION GAP 10 MEQ/L (8-16); AST/SGOT 17 U/L (15-37); BILIRUBIN,TOTAL 0.5 MG/DL (0.2-1.0); BLOOD UREA NITROGEN 40 MG/DL (7-18); CALCIUM LEVEL 8.8 MG/DL (8.8-10.2); CARBON DIOXIDE LEVEL 28 MEQ/L (21-32); CHLORIDE LEVEL 95 MEQ/L (98-107); CREATININE FOR GFR 2.07 MG/DL (0.55-1.02); GLOMERULAR FILTRATION RATE 24.6 (>39); GLUCOSE, FASTING 84 MG/DL (83-110); POTASSIUM SERUM 3.9 MEQ/L (3.5-5.1); SODIUM LEVEL 133 MEQ/L (136-145); TOTAL PROTEIN 6.9 GM/DL (6.4-8.2)
[2017-05-05 14:50] LABS: ERYTHROCYTE SEDIMENTATION RATE 84 mm/hr (0-30)
[2017-05-07 11:24] LABS: ALBUMIN 3.93 GM/DL (3.29-5.55); ALBUMIN % 56.9 % (55.8-66.1); GAMMA GLOBULIN % 11.9 % (11.1-18.8)
[2017-05-09 18:14] LABS: SJOGREN'S ANTI SS-A <0.2 AI (0.0-0.9); SJOGREN'S ANTI SS-B <0.2 AI (0.0-0.9); VITAMIN E LEVEL 29.4 mg/L (6.5-21.5)
== END ==
LOC: M LABNEURO 12:28
PROVIDERS: ATTEND Psychiatry & Neurology Neurology
DX: G62.9 Polyneuropathy, unspecified (principal); Z79.899 Other long term (current) drug therapy

== ENCOUNTER → 2017-08-18 | Outpatient (REF) | payer MEDICARE, BC ==
[2017-08-18 16:24] LABS: PERCENT SATURATION 22.7 % (13.2-45.0)
== END ==
LOC: M LAB REF 14:49
PROVIDERS: ATTEND Internal Medicine Nephrology
DX: N18.9 Chronic kidney disease, unspecified (principal); D63.1 Anemia in chronic kidney disease

== ENCOUNTER → 2018-07-08 | Outpatient (REF) | payer MEDICARE, BC ==
[2018-07-08 19:09] LABS: PHOSPHORUS LEVEL 4.5 MG/DL (2.5-4.9); URIC ACID 4.5 MG/DL (2.6-6.0)
[2018-07-08 19:53] LABS: PTH INTACT 97.4 PG/ML (18.5-88.0)
[2018-07-09 14:34] LABS: ANION GAP 14 MEQ/L (8-16); BLOOD UREA NITROGEN 50 MG/DL (7-18); CALCIUM LEVEL 8.3 MG/DL (8.8-10.2); CARBON DIOXIDE LEVEL 24 MEQ/L (21-32); CHLORIDE LEVEL 97 MEQ/L (98-107); GLOMERULAR FILTRATION RATE 20.7 (>32); GLUCOSE, FASTING 102 MG/DL (70-100); POTASSIUM SERUM 4.9 MEQ/L (3.5-5.1); SODIUM LEVEL 135 MEQ/L (136-145)
== END ==
LOC: M LAB REF 18:15
DX: N18.4 Chronic kidney disease, stage 4 (severe) (principal); M10.9 Gout, unspecified; E11.22 Type 2 diabetes mellitus with diabetic chronic kidney disease
CPT/HCPCS: 84100

== ENCOUNTER → 2018-09-20 | Outpatient (REF) | payer MEDICARE, BC | LOC: M LAB REF 12:00 | DX: N76.0 Acute vaginitis (principal) | CPT/HCPCS: 87205 ==

== ENCOUNTER → 2018-10-11 | Outpatient (REF) | payer MEDICARE, BC ==
[~2018-10-11] MED LIST changes: -GABA-283 PO; +GABA-845 PO
[2018-10-11 17:22] LABS: PTH INTACT 67.7 PG/ML (18.5-88.0)
== END ==
LOC: M LAB REF 16:36
PROVIDERS: ATTEND Internal Medicine
DX: M1A.30X0 Chronic gout due to renal impairment, unspecified site, without tophus (tophi) (principal); N25.81 Secondary hyperparathyroidism of renal origin; N18.4 Chronic kidney disease, stage 4 (severe)

== ENCOUNTER → 2018-12-28 | Outpatient (REF) | payer MEDICARE ==
[~2018-12-28] MED LIST changes: -LASI40TA PO; +LASI40TA9 PO
== END ==
LOC: M LAB REF 16:20
PROVIDERS: ATTEND Nurse Practitioner Family
DX: N76.0 Acute vaginitis (principal)

== ENCOUNTER → 2019-04-14 | Outpatient (REF) | payer MEDICARE ==
[~2019-04-14] MED LIST changes: -CINA30TA PO; +CINA30TA4 PO
== END ==
LOC: M LAB REF 16:18
PROVIDERS: ATTEND Internal Medicine
DX: R10.9 Unspecified abdominal pain (principal)

== ENCOUNTER 2019-09-07 10:51 | Day surgery (SDC) | payer MEDICARE ==
[~2019-09-07] VITALS: Ht 170.2 cm; Wt 85.3 kg
[~2019-09-07 10:51] MED LIST changes: +NS 1,000 ML IV ONE; +ONDA4TAB6 PO
[2019-09-07] MEDS ORDERED: PROPOFOL 200 MG/20 ML VIAL As Ordered ONE (12:04)
[2019-09-07] MEDS ORDERED: LIDOCAINE 2% INJ 100 MG/5 ML SDV (FOR ANES.) As Ordered ONE (12:04)
--- NOTE | 2019-09-07 12:53 | ROOR ---
Patient Name: Christine Shaw Procedure Date: 09/07/2019 12:34 PM Date of : 1935 Age: 83 Room: [facility] Gender: Female Note Status: Finalized Procedure: Upper Endoscopy + Biopsies Indications: Dysphagia, Heartburn Providers: Kevin Mercado MD Referring MD: Rosette PAZ DO Requestdamien Provider: Medicines: Monitored Anesthesia Care Complications: No immediate complications. Procedure: Pre-Anesthesia Assessment: - The heart rate, respiratory rate, oxygen saturations, blood pressure, adequacy of pulmonary ventilation, and response to care were monitored throughout the procedure. The Endoscope was introduced through the mouth, and advanced to the second part of duodenum. The upper GI endoscopy was accomplished without difficulty. The patient tolerated the procedure well. Findings: The Z-line was irregular and was found 35 cm from the incisors. Multiple biopsies were obtained with cold forceps for evaluation to rule out Andrews's Esophagus randomly at the gastroesophageal junction. A small hiatal hernia was present. Localized mild inflammation characterized by congestion (edema) and erythema was found in the gastric antrum. Biopsies were taken with a cold forceps for Helicobacter pylori testing. The exam of the duodenum was otherwise normal. Impression: - Z-line irregular, 35 cm from the incisors. - Small hiatal hernia. - Mucosal changes suspicious for gastritis. Biopsied. - Multiple biopsies were obtained at the gastroesophageal junction. - The examination was otherwise normal. Recommendation: - Patient has a contact number available for emergencies. The signs and symptoms of potential delayed complications were discussed with the patient. Return to normal activities tomorrow. Written discharge instructions were provided to the patient. - High fiber diet. - Discharge patient to home. - Follow an antireflux regimen. - Continue present medications. - Await pathology results. - Telephone GI clinic for pathology results in 1 week. - Return to referring physician. - The findings and recommendations were discussed with the patient's family. Kevin Mercado MD Kevin Mercado MD 09/07/2019 12:53:19 PM Electronically signed by Kevin Mercado MD Number of Addenda: 0 Note Initiated On: 09/07/2019 12:34 PM Estimated Blood Loss: Estimated blood loss: none.
--- NOTE | 2019-09-07 13:13 | ROOR ---
Patient Name: Christine Shaw Procedure Date: 09/07/2019 12:35 PM Date of : 1935 Age: 83 Room: [facility] Gender: Female Note Status: Finalized Procedure: Total Colonoscopy to Cecum + Bx. To r/o Microscopic Colitis Indications: Change in bowel habits Providers: Kevin Mercado MD Referring MD: Rosette PAZ DO Requesting Provider: Medicines: Monitored Anesthesia Care Complications: No immediate complications. Procedure: Pre-Anesthesia Assessment: - The heart rate, respiratory rate, oxygen saturations, blood pressure, adequacy of pulmonary ventilation, and response to care were monitored throughout the procedure. The Colonoscope was introduced through the anus and advanced to the cecum, identified by appendiceal orifice and ileocecal valve. The colonoscopy was performed without difficulty. The patient tolerated the procedure well. The quality of the bowel preparation was excellent. Findings: The perianal and digital rectal examinations were normal. Non-bleeding internal hemorrhoids were found during retroflexion. The hemorrhoids were small and Grade I (internal hemorrhoids that do not prolapse). Multiple small and large-mouthed diverticula were found in the recto-sigmoid colon, sigmoid colon and descending colon. Biopsies for histology were taken with a cold forceps from the descending colon and rectosigmoid colon for evaluation of microscopic colitis. The exam was otherwise without abnormality on direct and retroflexion views. Impression: - Non-bleeding internal hemorrhoids. - Diverticulosis in the recto-sigmoid colon, in the sigmoid colon and in the descending colon. - The examination was otherwise normal on direct and retroflexion views. - Biopsies were taken with a cold forceps from the descending colon and rectosigmoid colon for evaluation of microscopic colitis. - The exam was otherwise normal to the cecum. Recommendation: - Patient has a contact number available for emergencies. The signs and symptoms of potential delayed complications were discussed with the patient. Return to normal activities tomorrow. Written discharge instructions were provided to the patient. - High fiber diet. - Discharge patient to home. - Continue present medications. - Await pathology results. - Telephone GI clinic for pathology results in 1 week. - Return to referring physician. - Repeat colonoscopy for symptoms only. - The findings and recommendations were discussed with the patient's family. Kevin Mercado MD Kevin Mercado MD 09/07/2019 1:13:10 PM Electronically signed by Kevin Mercado MD Number of Addenda: 0 Note Initiated On: 09/07/2019 12:35 PM Estimated Blood Loss: Estimated blood loss: none.
[2019-09-07 13:58] VITALS: BP 122/64
== END 2019-09-07 14:01 | disposition home or self-care (01) ==
LOC: M OPP 10:51
PROVIDERS: ATTEND Internal Medicine Gastroenterology
DX: K64.0 First degree hemorrhoids (principal); K57.30 Diverticulosis of large intestine without perforation or abscess without bleeding; R19.4 Change in bowel habit; K22.8 Other specified diseases of esophagus; K44.9 Diaphragmatic hernia without obstruction or gangrene; K31.89 Other diseases of stomach and duodenum; R13.10 Dysphagia, unspecified; R12 Heartburn; K58.0 Irritable bowel syndrome with diarrhea; I10 Essential (primary) hypertension; Z79.4 Long term (current) use of insulin; Z79.82 Long term (current) use of aspirin; Z79.899 Other long term (current) drug therapy

== ENCOUNTER → 2020-01-12 | Outpatient (REF) | payer MEDICARE ==
[~2020-01-12] MED LIST changes: +BENA40TA5 PO; -BENA40TA7 PO; -NS 1,000 ML IV ONE; -SIMV40TA2 PO; +SIMV40TA20 PO
== END ==
LOC: M LAB REF 12:15
PROVIDERS: ATTEND Internal Medicine
DX: N76.0 Acute vaginitis (principal)

== ENCOUNTER → 2020-03-01 | Outpatient (REF) | payer MEDICARE ==
[2020-03-01 18:18] LABS: PERCENT SATURATION 14.1 % (13.2-45.0)
== END ==
LOC: M LAB REF 16:57
PROVIDERS: ATTEND Nurse Practitioner Family
DX: D50.9 Iron deficiency anemia, unspecified (principal)

== ENCOUNTER → 2020-10-03 | Outpatient (REF) | payer MEDICARE ==
[~2020-10-03] MED LIST changes: -ASPI81TA85 PO; +ASPI81TA86 PO
== END ==
LOC: M LAB REF 17:00
PROVIDERS: ATTEND Internal Medicine
DX: L03.90 Cellulitis, unspecified (principal)

== ENCOUNTER → 2021-02-21 | Outpatient (REF) | payer MEDICARE, MEDICAID ==
[~2021-02-21] MED LIST changes: +FERR324T21 PO; -FERR325T16 PO
[2021-02-21 18:27] LABS: VITAMIN B12 LEVEL 510 PG/ML (247-911)
== END ==
LOC: M LAB REF 16:23
PROVIDERS: ATTEND Internal Medicine
DX: R41.82 Altered mental status, unspecified (principal)

== ENCOUNTER → 2021-03-16 | Outpatient (CLI) | payer MEDICARE, MEDICAID ==
[~2021-03-16] MED LIST changes: +GABA-283 PO; -GABA-845 PO
--- NOTE | 2021-03-16 13:51 | REP ---
INDICATION: DECLINE IN MEMORY. COMPARISON: None. TECHNIQUE: Axial and sagittal imaging planes are utilized for T1 and T2-weighted scans. Sequences include spin-echo, fast spin echo, FLAIR, and diffusion weighted sequences. FINDINGS: No bony calvarial lesion is seen. There are a few fluid-filled left mastoid air cells. Otherwise, the paranasal sinuses appear to be clear. No intraorbital abnormality is appreciated. There is generalized volume loss. Mild small vessel atherosclerotic changes are seen in the periventricular and subcortical white matter of the supratentorial brain bilaterally. There is a tiny old lacunar infarct in the periventricular white matter of the left frontal lobe. Diffusion-weighted scans show no evidence to suggest acute ischemia. There is no evidence of intracranial mass, acute or chronic hemorrhage, extra-axial fluid collection, or midline shift. IMPRESSION: Generalized volume loss and microvascular ischemic changes which are chronic. No acute intracranial abnormality. 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 <Electronically signed by Sudarshan Kim > 03/16/21 [id number]
== END ==
LOC: M RAD 12:26
PROVIDERS: ATTEND Internal Medicine
DX: R41.3 Other amnesia (principal)

== ENCOUNTER → 2021-06-12 | Outpatient (REF) | payer MEDICARE, MEDICAID | LOC: M LAB REF 16:49 | PROVIDERS: ATTEND Internal Medicine | DX: N76.0 Acute vaginitis (principal) ==

== ENCOUNTER → 2021-07-10 | Outpatient (REF) | payer MEDICARE, MEDICAID | LOC: M LAB REF 13:01 | PROVIDERS: ATTEND Nurse Practitioner Family | DX: E83.42 Hypomagnesemia (principal) ==

== ENCOUNTER → 2021-07-10 | Outpatient (REF) | payer MEDICARE, MEDICAID ==
[2021-07-10 18:21] LABS: HEMOGLOBIN A1c 6.3 %
[2021-07-10 18:47] LABS: CHOLESTEROL RISK RATIO 2.62 (<5); MAGNESIUM LEVEL 2.2 MG/DL (1.8-2.4); THYROID STIMULATING HORMONE 3.91 uIU/ML (0.358-3.740)
== END ==
LOC: M LAB REF 16:55
PROVIDERS: ATTEND Internal Medicine
DX: E78.00 Pure hypercholesterolemia, unspecified (principal); F41.9 Anxiety disorder, unspecified; Z79.4 Long term (current) use of insulin; E83.42 Hypomagnesemia

== ENCOUNTER → 2022-01-23 | Outpatient (REF) | payer MEDICARE, MEDICAID ==
[~2022-01-23] MED LIST changes: -BENA40TA5 PO; +BENA40TA84 PO
[2022-01-23 17:59] LABS: HEMOGLOBIN A1c 6.1 %
[2022-01-23 18:02] LABS: ALBUMIN 3.6 GM/DL (3.2-5.2); BILIRUBIN,TOTAL 0.5 MG/DL (0.2-1.0); CALCIUM LEVEL 9.8 MG/DL (8.8-10.2); CREATININE FOR GFR 2.24 MG/DL (0.55-1.30); GLOMERULAR FILTRATION RATE 22.2 (>32); MAGNESIUM LEVEL 2.2 MG/DL (1.8-2.4); POTASSIUM SERUM 4.5 MEQ/L (3.5-5.1); THYROID STIMULATING HORMONE 2.42 uIU/ML (0.358-3.740); TOTAL PROTEIN 6.2 GM/DL (6.4-8.2)
== END ==
LOC: M LAB REF 16:46
PROVIDERS: ATTEND Internal Medicine
DX: E78.5 Hyperlipidemia, unspecified (principal); F41.9 Anxiety disorder, unspecified; E11.9 Type 2 diabetes mellitus without complications; I10 Essential (primary) hypertension; D51.9 Vitamin B12 deficiency anemia, unspecified

== ENCOUNTER → 2023-04-22 | Outpatient (REF) | payer MEDICARE, MEDICAID ==
[2023-04-23 15:55] LABS: PERCENT SATURATION 19.5 % (13.2-45.0)
[2023-04-23 15:58] LABS: FERRITIN 51.5 NG/ML (7.3-270.7)
== END ==
LOC: M LAB REF 12:14
PROVIDERS: ATTEND Internal Medicine
DX: D64.9 Anemia, unspecified (principal)

== ENCOUNTER → 2023-08-11 | Outpatient (REF) | payer MEDICARE, MEDICAID ==
[~2023-08-11] MED LIST changes: -GABA-283 PO; +GABA-284 PO
== END ==
LOC: M LAB REF 13:16
PROVIDERS: ATTEND Internal Medicine
DX: R07.89 Other chest pain (principal); W19.XXXA Unspecified fall, initial encounter; M54.50 Low back pain, unspecified

== ENCOUNTER → 2023-12-10 | Outpatient (REF) | payer MEDICARE, MEDICAID ==
[~2023-12-10] MED LIST changes: -HYDR-3910 PO; +HYDR25TA87 PO
[2023-12-10 19:02] LABS: PERCENT SATURATION 22.3 % (13.2-45.0)
[2023-12-10 19:10] LABS: FERRITIN 51.1 NG/ML (7.3-270.7)
== END ==
LOC: M LAB REF 17:57
PROVIDERS: ATTEND Nurse Practitioner Family
DX: D50.9 Iron deficiency anemia, unspecified (principal)